=== PATIENT | male | born 1965 | race Hispanic/Latino ===

== ENCOUNTER → 2017-10-09 | Outpatient (CLI) | payer OTHER ==
--- NOTE | 2017-10-09 12:11 | Diagnostic Imaging Report ---
PROCEDURE:L-SPINE COMPLETE COMPARISON:None. INDICATIONS:LOWER BACK PAIN FINDINGS: There are 5 lumbar-type vertebral bodies. The vertebral bodies are well-aligned without evidence of spondylolisthesis. Vertebral body heights are maintained. There are no fractures, lytic or blastic lesions. The disc-space heights are well-maintained, except for L5-S1. There is also facet arthropathy and osteophytosis at L5-S1. Unilateral right L5 pars defect is suspected. No spondylolisthesis. The sacroiliac joints are unremarkable. CONCLUSION: Moderate to severe degenerative changes at L5-S1, marked by disc space narrowing, osteophytosis, and facet arthropathy. Dictated by: Nathan Beck M.D. on 10/09/2017 at 12:17 Electronically approved by: Nathan Beck M.D. on 10/09/2017 at 12:17
--- NOTE | 2017-10-09 12:16 | Diagnostic Imaging Report ---
PROCEDURE:SACRUM X-RAY INDICATION:Lower back pain. COMPARISON:None. FINDINGS: See conclusion. CONCLUSION: No evidence of acute displaced sacral fracture. Sacroiliac joints are within normal limits. L5-S1 degenerative changes. Dictated by: Nathan Beck M.D. on 10/09/2017 at 12:22 Electronically approved by: Nathan Beck M.D. on 10/09/2017 at 12:22
== END ==
LOC: RAD 10:50
PROVIDERS: ATTEND Internal Medicine
DX: M54.5 Low back pain (principal)
CPT/HCPCS: 72110; 72220